=== PATIENT | female | born 1990 | race Caucasian/White ===

== ENCOUNTER 2021-04-24 17:09 | Inpatient (IN) | payer MEDICAID ==
[~2021-04-24] VITALS: Ht 163 cm; Wt 87.0 kg
[2021-04-24] VITALS (9 sets, daily range): BP systolic 96–119; BP diastolic 63–79
[2021-04-24 17:40] LABS: BILIRUBIN,URINE NEGATIVE (NEGATIVE); CLARITY,URINE CLEAR; COLOR,URINE YELLOW; GLUCOSE, URINE (UA) NEGATIVE (NEGATIVE); KETONES,URINE NEGATIVE (NEGATIVE); LEUKOCYTE ESTERASE ,URINE TRACE (NEGATIVE); NITRITE,URINE NEGATIVE (NEGATIVE); PH,URINE 6.5 (5-9); PROTEIN,URINE NEGATIVE (NEGATIVE)
[2021-04-24 17:47] LABS: BACTERIA,URINE NEGATIVE /HPF; WBC,URINE RARE /HPF
[2021-04-24] MEDS ORDERED: hydrOXYzine (VISTARIL/ATARAX) 25 MG capsule/tablet PO NR (19:00)
[2021-04-24] MEDS ORDERED: FAMOTIDINE 20MG/2ML IV (PEPCID) ONE (20:31)
[2021-04-24] MEDS ORDERED: CITRIC ACID/SOB CIT (BICITRA) 30 ML UDC ONE (20:31)
[2021-04-24] MEDS ORDERED: METOCLOPRAMIDE INJ 10 MG/2 ML (REGLAN) ONE (20:31)
[2021-04-24] MEDS ORDERED: ceFAZolin 2 GM IV Premixed 50 ML ONE (20:32)
[2021-04-24] MEDS ORDERED: metroNIDAZOLE 500MG/100ML IVPB 100 ML IV ONE (20:45)
[2021-04-24] MEDS ORDERED: ceFAZolin INJECTION 2,000 MG in WATER (STERILE) FOR INJECTION 10 ML IV ONE (20:45)
[2021-04-24] MEDS ORDERED: D5 LR IV SOLUTION 1,000 ML IV SCH (20:45)
[2021-04-24] MEDS ORDERED: metroNIDAZOLE 500MG/100ML IVPB 100 ML ONE (20:49)
--- NOTE | 2021-04-24 20:50 | Discharge Inst-Surgical ---
Discharge Inst-Surgical Consults/Follow Up Patient Instructions: As directed Orders & Referrals Follow Up Appt: RTC 1 week for incision check With Dr. Brandt Call to make follow up appt. for patient in [address] Camarena. Wound Care: Remove maria a, apply benzoin and steri strips. Activity Per routine post instructions. Diet as tolerated Patient may shower or tub bathe as desired. Continue home meds Activity Activity as Tolerated: No Diet Discharge Diet: No Restrictions MIESHA BRANDT MD Apr 24, 2021 20:49
[2021-04-24 20:56] LABS: BASOPHILS % (AUTO) 0 % (0-10); EOSINOPHILS # (AUTO) 0.2 10^3/uL (0.0-0.3); EOSINOPHILS % (AUTO) 1 % (0-10); HEMATOCRIT 43 % (35-52); HEMOGLOBIN 14.7 g/dL (11.5-16.0); LYMPHOCYTES # (AUTO) 2.9 10^3/uL (1.0-4.0); LYMPHOCYTES % (AUTO) 22 % (12-44); MEAN CORPUSCULAR HEMOGLOBIN 31 pg (25-34); MEAN CORPUSCULAR HGB CONC 34 g/dL (32-36); MEAN CORPUSCULAR VOLUME 91 fL (80-99); MEAN PLATELET VOLUME 10.8 fL (9.0-12.2); MONOCYTES # (AUTO) 0.6 10^3/uL (0.0-1.0); MONOCYTES % (AUTO) 5 % (0-12); NEUTROPHILS # (AUTO) 9.5 10^3/uL (1.8-7.8); NEUTROPHILS % (AUTO) 72 % (42-75); PLATELET COUNT 229 10^3/uL (130-400); WHITE BLOOD COUNT 13.3 10^3/uL (4.3-11.0)
[2021-04-24] MEDS ORDERED: OXYTOCIN PRE-MIX DRIP 1,000 ML IV ONE (21:08)
[2021-04-24] MEDS ORDERED: KETOROLAC 30 MG/ML VIAL ONE (21:08)
[2021-04-24] MEDS ORDERED: ONDANSETRON 4 MG/2 ML (SDV) Z0FRAN ONE (21:08)
[2021-04-24] MEDS ORDERED: fentaNYL INJ 100 MCG/2 ML AMP ONE (21:08)
[2021-04-24] MEDS ORDERED: BUPIVACAINE 0.25% 30 ML (SENSORCAINE) VIAL ONE (21:43)
[2021-04-24] MEDS ORDERED: METOCLOPRAMIDE INJ 10 MG/2 ML (REGLAN) IV PRN (22:30)
[2021-04-24] MEDS ORDERED: diphenhydrAMINE 50 MG/ML INJ (BENADRYL) IV PRN (22:30)
[2021-04-24] MEDS ORDERED: ONDANSETRON 4 MG/2 ML (SDV) Z0FRAN IV PRN (22:30)
[2021-04-24] MEDS ORDERED: NALOXONE 0.4 MG/ML 1 ML (NARCAN) VIAL IV PRN ×2 (22:30)
[2021-04-25] VITALS (7 sets, daily range): BP systolic 99–107; BP diastolic 56–69
--- NOTE | 2021-04-25 01:03 | OPERATIVE REPORT ---
DATE OF SERVICE: 04/24/2021 PREOPERATIVE DIAGNOSES: A 37 and 4/7 weeks' gestation and labor with previous . POSTOPERATIVE DIAGNOSIS: A 37 and 4/7 weeks' gestation and labor with previous . OPERATIVE PROCEDURE: Repeat low transverse delivery of a viable female infant with Apgars of 8 and 8 at 1 and 5 minutes respectively, weight of 5 pounds 13 ounces, time of 8 and a cord blood pH of 7.33. OPERATIVE DESCRIPTION: With the patient in the supine position under satisfactory spinal analgesia, she was prepped and draped in the usual fashion for abdominal surgery. Ramirez catheter was placed in the urinary bladder. A repeat Pfannenstiel incision made through skin with scalpel by removing the patient's previous Pfannenstiel incisional scar. The abdomen was entered in the usual manner. Bladder retractor placed in position. Clean scalpel used to make a 4 cm hysterotomy incision that was extended bluntly. Clear fluid was released on hysterotomy. The infant was delivered via the uterine incision. Infant was bulb suctioned on delivery of the head and again on completion of delivery. Umbilical cord was doubly clamped and cut. The infant passed to the pediatric nurse in attendance for delivery. Cord bloods were obtained. Placenta delivered spontaneously [place]. It was normal with a 3-vessel cord. The uterus was exteriorized, interior wiped clean with a wet laparotomy sponge. Uterine incision closed with running locked suture of 2-0 Vicryl. Hemostasis was complete. The uterus was returned to abdominal cavity. All blood clot and debris removed from the abdominal cavity. Sponge and needle counts correct, hemostasis assured. Anterior parietal peritoneum was closed with running suture of 2-0 Vicryl. Rectus muscles were closed with that suture as well. The rectus fascia was closed with 2-0 Vicryl, subcutaneous tissue was closed with 2-0 Vicryl and the skin was stapled. Sponge and needle counts were correct on completion of the procedure. Blood loss was around 300 mL. The patient tolerated the procedure well and was transferred to the recovery room in stable condition. The had been taken stable to the full-term nursery. Job ID: [id number] DocumentID: [id number] Dictated Date: 04/24/2021 22:10:32 Lead Mobile Developer Date: 04/25/2021 01:02:25 Dictated By: MIESHA YUAN MD
[2021-04-25] MEDS ORDERED: NALOXONE 0.4 MG/ML 1 ML (NARCAN) VIAL IV PRN (02:00)
[2021-04-25] MEDS ORDERED: D5 LR IV SOLUTION 1,000 ML IV SCH (02:00)
[2021-04-25] MEDS ORDERED: fentaNYL INJ 100 MCG/2 ML AMP IVP PRN (02:00)
[2021-04-25] MEDS ORDERED: ONDANSETRON 4 MG/2 ML (SDV) Z0FRAN IVP PRN (02:00)
[2021-04-25] MEDS: OXYTOCIN PRE-MIX DRIP 500 ML IV SCH ×2 (02:00→03:49)
[2021-04-25] MEDS: KETOROLAC 30 MG/ML VIAL IVP SCH ×2 (03:49→03:50)
[2021-04-25] MEDS: oxyCODONE/APAP 10/325MG (PERCOCET 10) TABLET PO PRN ×4 (03:50→20:59)
[2021-04-25] MEDS ORDERED: DOCUSATE SODIUM 100 MG (COLACE) CAP PO SCH (09:00)
[2021-04-25] MEDS ORDERED: DOCU100C37 PO (10:12)
[2021-04-25] MEDS ORDERED: OXYC1TAB12 PO (10:12)
[2021-04-25] MEDS ORDERED: IBUP-1780 PO (10:12)
--- NOTE | 2021-04-25 10:14 | Discharge Inst-Surgical ---
Discharge Inst-Surgical Depart Medication/Instructions New, Converted or Re-Newed RX: Transmitted to Pharmacy Consults/Follow Up Patient Instructions: As directed Orders & Referrals Follow Up Appt: RTC 1 week for incision check with Dr. Brandt Call to make follow up appt. for patient in [address] Camarena. Wound Care: Remove maria a, apply benzoin and steri strips. Activity Per routine post instructions. Diet as tolerated Patient may shower or tub bathe as desired. Continue home meds Activity Activity as Tolerated: No Diet Discharge Diet: No Restrictions MIESHA BRANDT MD Apr 25, 2021 10:14
[2021-04-25] MEDS: DOCUSATE SODIUM 100 MG (COLACE) CAP PO SCH ×2 (10:16→20:58)
[2021-04-25] MEDS: IBUPROFEN 800 MG (MOTRIN) TAB PO SCH ×2 (10:17→16:47)
--- NOTE | 2021-04-25 13:47 | Anesthesia-Regional Post-Op ---
Regional Patient Condition Mental Status: Alert, Oriented x3 Circulation: Same as Pre-Op Headache: Absent Sensation: Full Recovery Motor Block: Absent Post Op Complications Complications None Follow Up Care/Instructions Patient Instructions None needed. Anesthesia/Patient Condition Patient is doing well, no complaints, stable vital signs, no apparent adverse anesthesia problems. No complications reported per nursing. MAGDALENA RAMEY CRNA Apr 25, 2021 13:47
[2021-04-26] VITALS: BP 111/73
[2021-04-26] MEDS: IBUPROFEN 800 MG (MOTRIN) TAB PO SCH ×3 (00:12→12:45)
[2021-04-26 04:00] VITALS: BP 101/66
[2021-04-26 08:00] VITALS: BP 108/67
[2021-04-26] MEDS ORDERED: MEASLES,MUMPS,RUBELLA 1 EA INJ SC ONE (08:30)
[2021-04-26] MEDS ORDERED: TETANUS,DIPTH,PERTUSS P/F (BOOSTRIX) 0.5 ML VIAL IM ONE (08:30)
[2021-04-26] MEDS: DOCUSATE SODIUM 100 MG (COLACE) CAP PO SCH (09:28)
--- NOTE | 2021-04-26 11:18 | Progress Note ---
Standard Progress Note Progress Notes/Assess & Plan Date Seen by a Provider: Apr 25, 2021 Time Seen by a Provider: 15:10 Progress/Assessment & Plan This patient is without complaint. She is ambulating, voiding, tolerating oral intake well has good pain control. Vital Signs Date Time Temp Pulse Resp B/P (MAP) Pulse Ox O2 Delivery O2 Flow Rate FiO2 04/26/21 08:00 36.3 89 18 108/67 (81) 96 Room Air 04/26/21 04:00 36.1 93 14 101/66 (78) 97 Room Air 04/26/21 00:00 36.3 96 12 111/73 (86) 98 Room Air 04/25/21 20:00 36.3 89 12 107/66 (80) 97 Room Air 04/25/21 16:48 36.1 92 18 104/69 (81) 98 Room Air 04/25/21 13:28 35.9 96 16 100/66 (77) 97 Vital signs are stable. Patient is afebrile. The abdomen is benign Extremities show no clubbing or cyanosis. There is no Homans' sign. Assessment and plan Postoperative day #1 status post repeat delivery doing well. Plan is for routine convalescent care MIESHA YUAN MD Apr 26, 2021 11:18
--- NOTE | 2021-04-26 11:19 | Progress Note ---
Standard Progress Note Progress Notes/Assess & Plan Date Seen by a Provider: Apr 26, 2021 Time Seen by a Provider: 07:11 Progress/Assessment & Plan This patient is without complaint. She is ambulating, voiding, tolerating oral intake well has good pain control. Vital Signs Date Time Temp Pulse Resp B/P (MAP) Pulse Ox O2 Delivery O2 Flow Rate FiO2 04/26/21 08:00 36.3 89 18 108/67 (81) 96 Room Air 04/26/21 04:00 36.1 93 14 101/66 (78) 97 Room Air 04/26/21 00:00 36.3 96 12 111/73 (86) 98 Room Air 04/25/21 20:00 36.3 89 12 107/66 (80) 97 Room Air 04/25/21 16:48 36.1 92 18 104/69 (81) 98 Room Air 04/25/21 13:28 35.9 96 16 100/66 (77) 97 Vital signs are stable. Patient is afebrile. The abdomen is benign Extremities show no clubbing or cyanosis. There is no Homans' sign. Assessment and plan Postoperative day #1 status post repeat delivery doing well. Plan is for routine convalescent care April 26, 2021 Patient is without complaint. She is ambulating, voiding, tolerating oral intake well and has good pain control. She is requesting discharge home. Vital Signs Date Time Temp Pulse Resp B/P (MAP) Pulse Ox O2 Delivery O2 Flow Rate FiO2 04/26/21 08:00 36.3 89 18 108/67 (81) 96 Room Air 04/26/21 04:00 36.1 93 14 101/66 (78) 97 Room Air 04/26/21 00:00 36.3 96 12 111/73 (86) 98 Room Air 04/25/21 20:00 36.3 89 12 107/66 (80) 97 Room Air 04/25/21 16:48 36.1 92 18 104/69 (81) 98 Room Air 04/25/21 13:28 35.9 96 16 100/66 (77) 97 Vital signs are stable. Patient afebrile. The abdomen is benign. The surgical incision is clean dry intact. Extremities show no clubbing or cyanosis. There is no Homans' sign. Assessment and plan Postoperative day #2 status post repeat delivery doing well plan is for discharge home with follow-up in clinic Final Diagnosis 37-week repeat delivery MIESHA YUAN MD Apr 26, 2021 11:19
[2021-04-30] MEDS ORDERED: IBUPROFEN 800 MG (MOTRIN) TAB PO SCH (02:00)
== END 2021-04-26 13:15 | disposition home or self-care (01) | DRG 788 ==
LOC: LDRP 17:09 → WSo 17:09 → LDRP 20:06
PROVIDERS: ADMIT Obstetrics & Gynecology; ATTEND Obstetrics & Gynecology
PROC: 10D00Z1 Extraction of Products of Conception, Low, Open Approach (ICD-10-PCS; principal; 2021-04-24 21:15)
DX: O34.211 Maternal care for low transverse scar from previous cesarean delivery (principal); Z3A.37 37 weeks gestation of pregnancy; Z37.0 Single live birth
CPT/HCPCS: 36415; 81000; 85025; 86850; 86900; 86901; 94664; 99212

== ENCOUNTER → 2021-04-29 | Outpatient (CLI) | payer MEDICAID ==
[~2021-04-29] MED LIST: DOCU100C37 PO; IBUP-1780 PO; OXYC1TAB12 PO
== END | disposition home or self-care (01) ==
LOC: PREOP 05:42
PROVIDERS: ATTEND Obstetrics & Gynecology
DX: Z01.818 Encounter for other preprocedural examination (principal)